=== PATIENT | female | born 1935 | race Caucasian/White ===

== ENCOUNTER → 2016-11-12 | Outpatient (CLI) | payer MEDICARE ==
--- NOTE | 2016-11-12 10:13 | REPMRS ---
Patient History The patient states she has not had a clinical breast exam in over a year. Patient is postmenopausal. Benign stereotactic core biopsy of the right breast, January 31, 2008. Digital Woman Screen Mammo: November 12, 2016 - Exam #: [id number] Bilateral CC and MLO view(s) were taken. Technologist: Milady Glaser, Technologist Prior study comparison: December 11, 2012, bilateral digital mammo screening bilat, performed at [facility]. December 13, 2007, bilateral mammogram performed at [facility]. FINDINGS: The breast tissue is almost entirely fat. There has been no change in the appearance of the mammogram from the prior studies. Stable scant fibronodular tissue scattered as before. There is no interval development of dominant mass, areas of architectural distortion, or clustered microcalcification typical of malignancy. Stereo clip in lower right breast is unchanged. Scattered lymph nodes are seen in the axillae. There are scattered, small, benign calcifications of doubtful clinical significance. There is a benign appearing intramammary node in the upper outer quadrant of the right breast. No significant changes when compared with prior studies. ASSESSMENT: BI-RADS/ACR category 2 mammogram. Benign finding(s). Recommendation Routine screening mammogram in 1 year. A. Negative x-ray reports should not delay biopsy if a dominant or clinically suspicious mass is present. B. Four to eight percent of cancers are not identified by mammography. C. Adenosis and dense breast may obscure an underlying neoplasm.(for women over age 40). This mammogram was interpreted with the aid of an FDA-approved computer-aided dectection system. Electronically Signed By: Magen Watson MD 11/12/16 [id number]
--- NOTE | 2016-11-15 10:47 | DEXA ---
AP SPINE L1 - L4 1.251 0.6 1.7 LT FEMUR TOTAL 1.090 0.7 2.2 RT FEMUR TOTAL 1.051 0.3 1.9 TOTAL BODY TOTAL OTHER DUAL FEMUR FRAX* ASSESSMENT Risk factors: None. 10 year probability of fracture Major osteoporotic fracture 12.8 % Hip fracture 3.1 % COMMENTS: Normal bone densitometry of the spine. Normal bone densitometry of the left hip. 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 The density of the spine has increased 10.0% since 05/25/2005. The density of the left hip has increased 7.4% since 05/25/2005. The density of the right hip has increased 5.5% since 05/25/2005. The increased density of the spine does represent a significant change since 06/2005. The increased density of the left hip does represent a significant change since 05/25/2005. The increased density of the right hip does represent a significant change. FOLLOW-UP: Recommendation for the next bone density exam: 2 years. ALAINA
== END ==
LOC: M WHC 08:52
PROVIDERS: ATTEND Family Medicine
DX: Z12.31 Encounter for screening mammogram for malignant neoplasm of breast (principal); M85.80 Other specified disorders of bone density and structure, unspecified site; Z78.0 Asymptomatic menopausal state; R92.8 Other abnormal and inconclusive findings on diagnostic imaging of breast
CPT/HCPCS: 77080; G0202

== ENCOUNTER → 2021-02-23 | Outpatient (CLI) | payer MEDICARE ==
--- NOTE | 2021-02-23 11:32 | REP ---
INDICATION: ACHILLES TENDINITIS. COMPARISON: None. TECHNIQUE: Four views FINDINGS: No acute fracture or destructive osseous lesion. The mortise is intact. IMPRESSION: No acute disease. Evaluation of the Achilles tendon is of clinical concern then an MRI examination would be in order. <Electronically signed by Rowdy Royal > 02/23/21 112
== END ==
LOC: M WUC 11:04
PROVIDERS: ATTEND Physician Assistant
DX: M76.61 Achilles tendinitis, right leg (principal)

== ENCOUNTER → 2024-04-03 | Outpatient (REF) | payer MEDICARE | LOC: M LAB REF 16:03 | PROVIDERS: ATTEND Family Medicine | DX: N18.31 Chronic kidney disease, stage 3a (principal); N39.0 Urinary tract infection, site not specified ==

== ENCOUNTER 2024-06-04 08:44 | Day surgery (SDC) | payer MEDICARE ==
[~2024-06-04] VITALS: Ht 160 cm; Wt 68.2 kg
[~2024-06-04 08:44] MED LIST: ATEN25TA PO; ATOR1TAB21 PO; BREO1INH; GNPTAB36 PO; LEVO100T5 PO; LR 1,000 ML IV SCH; MECL-86 PO; SERT50TA29 PO; VENTAER
[2024-06-04] MEDS ORDERED: fentaNYL 100 MCG/2 ML INJECTION As Ordered ONE (09:23)
[2024-06-04] MEDS: ATROPINE SULFATE 1% OPHTH SOLN 2ML BTL OS SCH (09:32)
[2024-06-04] MEDS: TETRACAINE 0.5% OPHTH SOLN 4ML OS SCH (09:32)
[2024-06-04] MEDS: PHENYLEPHRINE 2.5% OPHTH SOL 2ML OS SCH (09:32)
[2024-06-04] MEDS: FLURBIPROFEN 0.03% OPHTH SOLN 2.5 ML OS SCH (09:32)
[2024-06-04] MEDS: LIDOCAINE 1% SDV 5ML VIAL As Ordered ONE (11:09)
[2024-06-04] MEDS: CEFUROXIME 1MG/0.1ML INTRACAMERAL INJ As Ordered ONE (11:12)
[2024-06-04 11:27] VITALS: BP 152/68; TEMP 97.7; O2SAT 95
== END 2024-06-04 11:56 | disposition home or self-care (01) ==
LOC: M SDC 08:44
PROVIDERS: ATTEND Ophthalmology
DX: H25.12 Age-related nuclear cataract, left eye (principal); I12.9 Hypertensive chronic kidney disease with stage 1 through stage 4 chronic kidney disease, or unspecified chronic kidney disease; N18.31 Chronic kidney disease, stage 3a; J44.9 Chronic obstructive pulmonary disease, unspecified; H91.13 Presbycusis, bilateral; E03.9 Hypothyroidism, unspecified; E78.00 Pure hypercholesterolemia, unspecified; R32 Unspecified urinary incontinence; Z79.890 Hormone replacement therapy; Z79.51 Long term (current) use of inhaled steroids
CPT/HCPCS: 66984; J0697; J3010; V2632

== ENCOUNTER → 2024-09-17 | Outpatient (REF) | payer MEDICARE ==
[~2024-09-17] MED LIST changes: -LR 1,000 ML IV SCH
[2024-09-17 17:15] LABS: APPEARANCE, URINE HAZY (CLEAR); BACTERIA, URINE AUTO NEGATIVE (NEGATIVE); BILIRUBIN, URINE AUTO NEGATIVE (NEGATIVE); BLOOD, URINE BLOOD 1+ (NEGATIVE); COLOR, URINE YELLOW (YELLOW); GLUCOSE, URINE (UA) AUTO NEGATIVE (NEGATIVE); KETONE, URINE AUTO NEGATIVE (NEGATIVE); LEUKOCYTE ESTERASE, URINE AUTO 3+ (NEGATIVE); MUCUS, URINE SMALL (NEGATIVE); NITRITE, URINE AUTO NEGATIVE (NEGATIVE); PROTEIN, URINE AUTO NEGATIVE (NEGATIVE); RBC, URINE AUTO 6 /HPF (0-3); SPECIFIC GRAVITY URINE AUTO 1.019 (1.002-1.035); SQUAMOUS EPITHELIAL CELL UR AU 8 /HPF (0-6); WBC, URINE AUTO 20 /HPF (0-3)
== END ==
LOC: M LAB REF 16:46
PROVIDERS: ATTEND Family Medicine
DX: R30.0 Dysuria (principal)